=== PATIENT | female | born 1995 | race Asian ===

== ENCOUNTER 2017-04-17 13:08 | Emergency (ER) | payer OTHER ==
[~2017-04-17] VITALS: Ht 162.6 cm; Wt 61.3 kg
[2017-04-17 13:12] VITALS: TEMP 36.8; Ht 162.6 cm; Wt 61.3 kg
[2017-04-17] MEDS ORDERED: HYDR5SYP11 PO (13:42)
[2017-04-17] MEDS ORDERED: DEXT1TAB50 PO (13:42)
--- NOTE | 2017-04-17 13:43 | EMERGENCY ROOM VISIT NOTE ---
History First contact with patient: 13:17 Chief Complaint: FLU LIKE SX Stated Complaint: COUGHING - MUCUS - FEVER History of Present Illness The patient is a 21 year old female who presents to the Emergency Room with complaints of a cough and fever for the last 3 days. The patient's symptoms started with a sore throat 3 days ago. She developed a mild fever the following day. She took her temperature and it was 99.1F. Her sore throat then improved and turned into a cough, which is now productive with green mucus. She denies any shortness of breath or chest pain. She denies any severe headache or neck pain. She has been taking Robitussin and Tylenol with minimal relief. Review of Systems 10 system review performed and negative unless noted in HPI or below Past Medical/Surgical History Otherwise healthy Social History Smoking Status: Never Smoker Occupation Status: [employer] Current/Historical Medications Scheduled Amoxicillin & Pot Clavulanate (Augmentin 875-125 mg), 1 TAB PO BID Miconazole Nitrate Vaginal (Miconazole), 2 APPLN TOP BID Multiple Vitamins W/ Minerals (Multivitamin Gummies Adul), 2 UNITS PO DAILY Scheduled PRN Dextromethorphan Polistirex (Robitussin 12 Hour Cough), 10 ML PO Q12H PRN for Cough Promethaz/Phenylephrin/Codeine (Promethazine Vc/Codeine), 5 ML PO Q6 PRN for Cough Physical Exam Vital Signs Date Time Temp Pulse Resp B/P (MAP) Pulse Ox O2 Delivery O2 Flow Rate FiO2 04/17/17 16:29 75 18 107/73 98 04/17/17 14:54 71 20 110/65 98 Room Air 04/17/17 13:12 36.8 94 20 112/79 97 Room Air Physical Exam VITALS: Vitals are noted on the nurse's note and reviewed by myself. Vital signs stable. GENERAL: 21-year-old female, in no acute distress, nondiaphoretic, well- developed well-nourished. SKIN: The skin was without rashes, erythema, edema, or bruising. HEAD: Normocephalic atraumatic. MOUTH: Mucous membranes moist. Tonsils are not enlarged. Pharynx without erythema or exudate. Uvula midline. Airway patent. Tongue does not deviate. NECK: Supple without nuchal rigidity. Lymphadenopathy noted in the first year cervical chain bilaterally.. Cervical spine is nontender. No JVD. HEART: Regular rate and rhythm without murmurs gallops or rubs. LUNGS: Clear to auscultation bilaterally without wheezes, rales or rhonchi. No accessory muscle use. ABDOMEN: Positive bowel sounds x 4.Soft, : External genitalia free of lesions. There is a small amount of erythema on the left labia majora. No discharge or foul odor noted. MUSCULOSKELETAL: No muscle atrophy, erythema, or edema noted. Strength 5/5 throughout. NEURO: Patient was alert and oriented to person place and time. Normal sensation to touch. No focal neurological deficits. Medical Decision & Procedures ER Provider Diagnostic Interpretation: CHEST 2 VIEWS ROUTINE HISTORY: productive cough fever COMPARISON: None. FINDINGS: The lungs are clear. Cardiac silhouette is normal in size. No pleural effusions. No pneumothorax. IMPRESSION: No acute process. Electronically signed by: Kan Aldrich M.D. 04/17/2017 2:15 PM Dictated Date/Time: 04/17/2017 2:15 PM The status of this report is Signed. Draft = Not yet reviewed or approved by Radiologist. Signed = Reviewed and approved by Radiologist. Laboratory Results Test 04/17/17 15:00 Urine Color YELLOW Urine Appearance CLEAR (CLEAR) Urine pH 7.0 (4.5-7.5) Urine Specific [place] 1.008 (1.000-1.030) Urine Protein NEG (NEG) Urine Glucose (UA) NEG (NEG) Urine Ketones NEG (NEG) Urine Occult Blood NEG (NEG) Urine Nitrite NEG (NEG) Urine Bilirubin NEG (NEG) Urine Urobilinogen NEG (NEG) Urine Leukocyte Esterase NEG (NEG) Urine Test NEG (NEG) ED Course The patient was seen and examined Imaging was performed and reviewed. The findings were discussed with the patient. The patient was reassessed. We discussed discharge instructions. She then told me that she would like me to examine her genitalia as she has had a small amount of itching on her labia for the last 3 days. A urinalysis was checked and reviewed Discharge instructions were thoroughly reviewed, and the patient was discharged in good condition Medical Decision Differential diagnosis: Bronchitis, pneumonia, strep pharyngitis, viral pharyngitis, influenza, other viral upper respiratory tract infection, Marilee dermatitis, vaginal candidiasis, STD, UTI This patient is a 21-year-old female that presents emergency department with a main complaint of low-grade fever and cough. On exam, she did not have any signs of tonsillitis. She is not acutely ill in appearance. Her vital signs are stable. Chest x-ray was reviewed. No infiltrates were noted. She was counseled on supportive care of a viral infection. She was provided a cough suppressant and Mucinex. She will follow-up with [facility] if her symptoms persist longer than 5 days. She agrees to return here with any new or worsening symptoms. Prior to discharge, the patient was complaining of itching on the outside of her labia. This was examined. It appears that she has a mild marilee dermatitis. She is not sexually active and does not complain of any vaginal discharge. I did not suspect an STD or vaginal candidiasis. She was given miconazole cream to apply to the affected area for 7 days. A urinalysis was also checked to rule out UTI. This was negative. The patient wasn't discharged in good condition. This chart was completed in part utilizing [id number] Speech Voice Recognition software. Attempts were made to minimize the grammatical errors, random word insertions, pronoun errors and incomplete sentences. Any formal questions or concerns about the content, text or information contained within the body of this dictation should be directly addressed to the provider for clarification. Blood Pressure Screening Patient's blood pressure: Normal blood pressure Impression Primary Impression: Upper respiratory infection Additional Impression: Candidal dermatitis Departure Information Dispostion Home / Self-Care Condition GOOD Prescriptions Miconazole Nitrate Vaginal (MICONAZOLE) 2 % Cre 2 APPLN TOP BID for 7 Days, #1 TUBE Prov: Altagracia Mantilla PA-C 04/17/17 Referrals No Doctor, Assigned (PCP) Patient Instructions Bronchitis Acute, [facility] Additional Instructions You were evaluated in the emergency department for a cough and fever. No signs of pneumonia on x-ray. This is likely a viral infection. Antibiotics will not cure this infection. It is important to stay well rested. Stay well hydrated over the next several days. Take Hycodan cough syrup as directed. Do not drink alcohol or drive while taking this medication. This is a narcotic Finish the entire course of Mucinex Please follow-up with [facility] if your symptoms do not improve over 5 days Please return to the emergency department with any new or worsening symptoms For the genital itching, please apply cream to the affected area twice daily for 7 days Problem Qualifiers
--- NOTE | 2017-04-17 14:17 | DIAGNOSTIC IMAGING REPORT ---
CHEST 2 VIEWS ROUTINE HISTORY: productive cough fever COMPARISON: None. FINDINGS: The lungs are clear. Cardiac silhouette is normal in size. No pleural effusions. No pneumothorax. IMPRESSION: No acute process. Electronically signed by: Kan Aldrich M.D. 04/17/2017 2:15 PM Dictated Date/Time: 04/17/2017 2:15 PM
[2017-04-17] MEDS ORDERED: DEXT30SU8 PO (14:41)
[2017-04-17] MEDS ORDERED: PHENSYP13 PO (14:41)
[2017-04-17] MEDS ORDERED: AMOX875T PO (14:41)
[2017-04-17] MEDS ORDERED: MULT1CHW18 PO (14:43)
[2017-04-17] MEDS ORDERED: MICO2CRE48 TOP (15:06)
[2017-04-17 15:21] LABS: URINE APPEARANCE CLEAR (CLEAR); URINE BILIRUBIN NEG (NEG); URINE COLOR YELLOW; URINE NITRITE NEG (NEG); URINE SPECIFIC GRAVITY 1.008 (1.000-1.030); UROBILINOGEN NEG (NEG)
[2017-04-17 15:24] LABS: MANUAL MICROSCOPIC REQUIRED? NO; REVIEW REQ? NO
[2017-04-17 16:29] VITALS: BP 107/73; PULSE 75; O2SAT 98
== END 2017-04-17 16:31 | disposition home or self-care (01) ==
LOC: C.EDB 13:09 → C.EDC 16:31
DX: J06.9 Acute upper respiratory infection, unspecified (principal); L30.9 Dermatitis, unspecified

== ENCOUNTER → 2017-09-19 | Outpatient (CLI) | payer OTHER ==
[~2017-09-19] MED LIST: AMOX875T PO; DEXT30SU8 PO; MICO2CRE48 TOP; MULT1CHW18 PO; PHENSYP13 PO
[2017-09-19 15:12] LABS: BASO % 0.3 %; BASO ABS # 0.02 K/uL (0-0.2); EOS % 1.5 %; EOS ABS # 0.11 K/uL (0-0.5); HEMOGLOBIN 15.9 g/dL (12.0-16.0); IG# 0.02 K/uL (0.00-0.02); LYMPH % 26.7 %; MEAN CELL VOLUME 91.6 fL (80-100); MEAN CORPUSCULAR HEMOGLOBIN 31.7 pg (25-34); MEAN CORPUSCULAR HGB CONC 34.6 g/dl (32-36); MEAN PLATELET VOLUME 10.4 fL (7.4-10.4); MONO % 4.8 %; MONO ABS # 0.36 K/uL (0.11-0.59); NEUT % 66.4 %; NEUT ABS # 4.97 K/uL (1.4-6.5); PLATELET COUNT 266 K/uL (130-400); RED CELL DISTRIBUTION WIDTH CV 12.6 % (11.5-14.5); RED CELL DISTRIBUTION WIDTH SD 42.3 fL (36.4-46.3); WHITE BLOOD COUNT 7.48 K/uL (4.8-10.8)
[2017-09-19 15:38] LABS: ALBUMIN 4.5 gm/dl (3.4-5.0); ALT/SGPT 27 U/L (12-78); BLOOD UREA NITROGEN 11 mg/dl (7-18); CALCIUM 9.4 mg/dl (8.5-10.1); CARBON DIOXIDE 29 mmol/L (21-32); CREATININE 0.79 mg/dl (0.60-1.20); GLUCOSE 81 mg/dl (70-99); POTASSIUM 4.1 mmol/L (3.5-5.1); SODIUM 136 mmol/L (136-145)
[2017-09-19 15:49] LABS: ALKALINE PHOSPHATASE 52 U/L (45-117); AST/SGOT 15 U/L (15-37); CHOLESTEROL 204 mg/dl (0-200); LDL CHOLESTEROL CALCULATED 126 mg/dl; TOTAL PROTEIN 8.4 gm/dl (6.4-8.2)
== END | disposition home or self-care (01) ==
LOC: C.LAB 12:33
PROVIDERS: ATTEND Neuromusculoskeletal Medicine & OMM
DX: Z13.220 Encounter for screening for lipoid disorders (principal); Z13.1 Encounter for screening for diabetes mellitus